=== PATIENT | male | born 1990 | race Caucasian/White ===

== ENCOUNTER 2018-04-25 17:03 | Emergency (ER) | payer OTHER ==
--- NOTE | 2018-04-25 19:09 | ER ---
Nurse's Notes [facility] Name: Jaskaran Acosta Age: 28 yrs Sex: Male : 1990 Arrival Date: 04/25/2018 Time: 17:05 Bed 30 Private MD: Korey Bae Diagnosis: Dysphasia Presentation: 04/25 17:19 Presenting complaint: Patient states: Pain to the left anterior aspect of neck, reports jl7 pain upon palpation, denies sore throat. I take Xarelto for history of blood clots, my doctor said I should come get checked out. Transition of care: patient was not received from another setting of care. Onset of symptoms was April 24, 2018. Risk Assessment: Do you want to hurt yourself or someone else? Patient reports no desire to harm self or others. Initial Sepsis Screen: Does the patient meet any 2 criteria? No. Patient's initial sepsis screen is negative. Does the patient have a suspected source of infection? No. Patient's initial sepsis screen is negative. Care prior to arrival: None. 17:19 Method Of Arrival: Ambulatory 7 17:19 Acuity: LEN 3 jl7 Triage Assessment: 17:24 General: Appears in no apparent distress. uncomfortable, Behavior is calm, cooperative, jl7 appropriate for age. Pain: Denies pain. EENT: Throat is clear. Neuro: Level of Consciousness is awake, alert, obeys commands, Oriented to person, place, time, situation. Cardiovascular: Patient's skin is warm and dry. Respiratory: Airway is patent Respiratory effort is even, unlabored, Respiratory pattern is regular, symmetrical. Derm: Skin is pink, warm \T\ dry. Historical: - Allergies: 17:24 No Known Allergies; jl7 - Home Meds: 17:24 Xarelto oral oral [Active]; Omeprazole Oral [Active]; jl7 - PMHx: 17:24 Clotting disorder; GERD; jl7 - PSHx: 17:24 Appendectomy; Cholecystectomy; jl7 - Immunization history:: Adult Immunizations up to date. - Social history:: Smoking status: Patient/guardian denies using tobacco. - Ebola Screening: : No symptoms or risks identified at this time. Screenin:42 Abuse screen: Denies threats or abuse. Denies injuries from another. Nutritional aj screening: No deficits noted. Tuberculosis screening: No symptoms or risk factors identified. Fall Risk None identified. Assessment: 17:42 General: Appears in no apparent distress. comfortable, Behavior is calm, cooperative, aj appropriate for age. Pain: Complains of pain in left sternocleidomastoid. Neuro: Level of Consciousness is awake, alert, obeys commands, Oriented to person, place, time, situation. Respiratory: Airway is patent Respiratory effort is even, unlabored, Respiratory pattern is regular, symmetrical. EENT: Reports Tenderness to left neck. Derm: Skin is intact, is healthy with good turgor, Skin is pink, warm \T\ dry. normal. Vital Signs: 17:24 BP 124 / 94; Pulse 63; Resp 16 S; Temp 98.3(O); Pulse Ox 97% on R/A; Weight 117.93 kg jl7 (R); Height 5 ft. 11 in. (180.34 cm) (R); Pain 1/10; 17:24 Body Mass Index 36.26 (117.93 kg, 180.34 cm) jl7 ED Course: 17:05 Patient arrived in ED. sb2 17:05 Korey Bae MD is Private Physician. sb2 17:22 Triage completed. jl7 17:24 Arm band placed on right wrist. jl7 17:26 Rita Aquino, RN is Primary Nurse. aj 17:42 Patient has correct armband on for positive identification. Bed in low position. aj 18:02 Essie Her [facility]-C [facility]. snw 18:02 Bhargav Collier MD is Attending Physician. snw 18:09 Patient taken to ultrasound. hector 18:29 Patient moved back from ultrasound. hector 18:30 Carotid Artery Bilateral US In Process Unspecified. EDMS 19:17 No provider procedures requiring assistance completed. Patient did not have IV access mg2 during this emergency room visit. Administered Medications: No medications were administered Outcome: 19:09 Discharge ordered by . snw 19:18 Discharged to home ambulatory, with family. mg2 19:18 Condition: stable 19:18 Discharge instructions given to patient, family, Instructed on discharge instructions, follow up and referral plans. medication usage, Demonstrated understanding of instructions, follow-up care, medications, Prescriptions given X 1. 19:18 Patient left the ED. mg2 Signatures: Dispatcher [employer] EDMS Rita Aquino, RN RN dorothy Essie Her, IT PROGRAM ENGAGEMENT DIRECTOR-C IT PROGRAM ENGAGEMENT DIRECTOR-Csnw Dov Jackson jd, Jahala, RN RN jl7 Yuliya Ritchie2 Kashif Hopkins, RN RN mg2
--- NOTE | 2018-04-25 19:09 | EDPHYS ---
Physician Documentation [facility] Name: Jaskaran Acosta Age: 28 yrs Sex: Male : 1990 Arrival Date: 04/25/2018 Time: 17:05 Bed 30 Private MD: Korey Bae ED Physician Bhargav Collier HPI: 04/25 19:00 This 28 yrs old Male presents to ER via Ambulatory with complaints of Neck snw Pain, >24Hrs Old. 19:00 The patient or guardian complains of pain, that is acute. The symptoms are located on snw the left anterior aspect of neck. Onset: The symptoms/episode began/occurred suddenly, yesterday. Context: The neck injury/problem resulted from from unknown cause. Associated signs and symptoms: The patient has no apparent associated signs or symptoms. Severity of symptoms: At their worst the symptoms were mild, moderate. no. Sees Oncology for protein S deficiency, on Xarelto. Pt states left carotid was sore to the touch, not similar to any previous sore throat, denies ear pain, denies vomiting, cough or any recent choking spells. Historical: - Allergies: 17:24 No Known Allergies; jl7 - Home Meds: 17:24 Xarelto oral oral [Active]; Omeprazole Oral [Active]; jl7 - PMHx: 17:24 Clotting disorder; GERD; jl7 - PSHx: 17:24 Appendectomy; Cholecystectomy; jl7 - Immunization history:: Adult Immunizations up to date. - Social history:: Smoking status: Patient/guardian denies using tobacco. - Ebola Screening: : No symptoms or risks identified at this time. ROS: 18:59 Constitutional: Negative for fever, chills, and weight loss, Eyes: Negative for injury, snw pain, redness, and discharge, ENT: Negative for injury, pain, and discharge, Cardiovascular: Negative for chest pain, palpitations, and edema, Respiratory: Negative for shortness of breath, cough, wheezing, and pleuritic chest pain, Abdomen/GI: Negative for abdominal pain, nausea, vomiting, diarrhea, and constipation, Back: Negative for injury and pain, : Negative for injury, bleeding, discharge, and swelling, MS/Extremity: Negative for injury and deformity, Skin: Negative for injury, rash, and discoloration, Neuro: Negative for headache, weakness, numbness, tingling, and seizure, Psych: Negative for depression, anxiety, suicide ideation, homicidal ideation, and hallucinations. 18:59 Neck: Positive for swelling, tenderness, of the left carotid area. Exam: 18:54 Constitutional: This is a well developed, well nourished patient who is awake, alert, snw and in no acute distress. Head/Face: Normocephalic, atraumatic. Eyes: Pupils equal round and reactive to light, extra-ocular motions intact. Lids and lashes normal. Conjunctiva and sclera are non-icteric and not injected. Cornea within normal limits. Periorbital areas with no swelling, redness, or edema. ENT: Nares patent. No nasal discharge, no septal abnormalities noted. Tympanic membranes are normal and external auditory canals are clear. Oropharynx with no redness, swelling, or masses, exudates, or evidence of obstruction, uvula midline. Mucous membranes moist. Chest/axilla: Normal chest wall appearance and motion. Nontender with no deformity. No lesions are appreciated. Cardiovascular: Regular rate and rhythm with a normal S1 and S2. No gallops, murmurs, or rubs. Normal PMI, no JVD. No pulse deficits. Respiratory: Lungs have equal breath sounds bilaterally, clear to auscultation and percussion. No rales, rhonchi or wheezes noted. No increased work of breathing, no retractions or nasal flaring. Abdomen/GI: Soft, non-tender, with normal bowel sounds. No distension or tympany. No guarding or rebound. No evidence of tenderness throughout. Back: No spinal tenderness. No costovertebral tenderness. Full range of motion. Skin: Warm, dry with normal turgor. Normal color with no rashes, no lesions, and no evidence of cellulitis. MS/ Extremity: Pulses equal, no cyanosis. Neurovascular intact. Full, normal range of motion. Neuro: Awake and alert, GCS 15, oriented to person, place, time, and situation. Cranial nerves II-XII grossly intact. Motor strength 5/5 in all extremities. Sensory grossly intact. Cerebellar exam normal. Normal gait. 18:54 Neck: External neck: tenderness, that is moderate, of the left anterior aspect of neck, C-spine: appears grossly normal, Trachea: is midline with no obvious abnormalities, ROM/movement: is normal, limited range of motion, is not appreciated, Meningeal signs: are not present, nuchal rigidity, is not appreciated, Lymph nodes: no appreciated lymphadenopathy. Vital Signs: 17:24 BP 124 / 94; Pulse 63; Resp 16 S; Temp 98.3(O); Pulse Ox 97% on R/A; Weight 117.93 kg jl7 (R); Height 5 ft. 11 in. (180.34 cm) (R); Pain 10; 17:24 Body Mass Index 36.26 (117.93 kg, 180.34 cm) jl7 MDM: 18:14 Patient medically screened. jeremías 19:16 Data reviewed: vital signs, nurses notes. Data interpreted: Pulse oximetry: on room air snw is 97 %. Interpretation: normal. Counseling: I had a detailed discussion with the patient and/or guardian regarding: the historical points, exam findings, and any diagnostic results supporting the discharge/admit diagnosis, the presence of at least one elevated blood pressure reading (>120/80) during this emergency department visit, radiology results, the need for outpatient follow up, to return to the emergency department if symptoms worsen or persist or if there are any questions or concerns that arise at home. Special discussion: I have referred the patient to see his PCP for further evaluation of high blood pressure. Based on the history and exam findings, there is no indication for further emergent testing or inpatient evaluation. I discussed with the patient/guardian the need to see the counselor manager/oncologist for further evaluation of the symptoms. 04/25 18:03 Order name: Carotid Artery Bilateral US snw Administered Medications: No medications were administered Disposition: 04/26 11:38 Co-signature as Attending Physician, Bhargav Collier MD I agree with the assessment and jeremías plan of care. Disposition: 04/25/18 19:09 Discharged to Home. Impression: Dysphasia. - Condition is Stable. - Discharge Instructions: Dysphagia, Cervical Sprain. - Prescriptions for Tylenol- Codeine #3 300-30 mg Oral Tablet - take 2 tablets by ORAL route every 6 hours As needed; 15 tablet. - Work release form, Family Work Release, Medication Reconciliation Form, Thank You Letter, Antibiotic Education, Prescription Opioid Use form. - Follow up: Private Physician; When: 1 - 2 days; Reason: Recheck today's complaints, Continuance of care, Re-evaluation by your physician. Follow up: Emergency Department; When: As needed; Reason: Worsening of condition. Signatures: Dispatcher [employer] Bhargav De La Torre MD MD cha Therrien, Shelly, YARN INSPECTOR-C YARN INSPECTOR-Csnw Dg Nagy, RN RN jl7 Kashif Hopkins RN RN mg2 Corrections: (The following items were deleted from the chart) 04/25 19:18 19:09 04/25/2018 19:09 Discharged to Home. Impression: Dysphasia. Condition is Stable. mg2 Forms are Medication Reconciliation Form, Thank You Letter, Antibiotic Education, Prescription Opioid Use. Follow up: Private Physician; When: 1 - 2 days; Reason: Recheck today's complaints, Continuance of care, Re-evaluation by your physician. Follow up: Emergency Department; When: As needed; Reason: Worsening of condition. snw
--- NOTE | 2018-04-25 20:15 | RAD REPORT ---
EXAM DESCRIPTION: JUAN Valderrama CP - 04/25/2018 6:29 pm CLINICAL HISTORY: Pain, syncope COMPARISON: None. TECHNIQUE: Real-time sonographic evaluation of both carotid systems was performed. Grayscale and Dop pler interrogation was performed with waveform tracing bilaterally. FINDINGS: Normal high resistance waveforms are noted in both external carotid arteries. The common c arotid arteries and internal carotid arteries show normal low resistance waveforms. No significant plaque formation is seen. Peak systolic and end diastolic velocity values and the ICA/ CCA ratios are in the non-hemodynamically significant range. No suspicious waveform pattern. Antegrade flow seen in both vertebral arteries. Velocity values and ratios were recorded and are retained in the patient's imaging records. IMPRESSION: No significant atherosclerotic changes noted. No evidence of a hemodynamically significant stenosis.
== END 2018-04-25 19:18 | disposition home or self-care (01) ==
LOC: ER 17:03
DX: R13.10 Dysphagia, unspecified (principal); D68.9 Coagulation defect, unspecified; Z79.01 Long term (current) use of anticoagulants
CPT/HCPCS: 93880; 99284